=== PATIENT | male | born 1955 | race Caucasian/White ===

== ENCOUNTER 2017-01-04 10:02 | Day surgery (SDC) | payer OTHER, MEDICARE ==
[2017-01-04] VITALS (11 sets, daily range): BP systolic 97–140; BP diastolic 49–90; PULSE 60–98; RESP 12–18; O2SAT 92–99
[~2017-01-04] VITALS: Ht 180.3 cm; Wt 129.5 kg
[~2017-01-04 10:02] MED LIST: CITA40TA13 PO; CeFAZolin Inj 3 GM in IV Premix 1 EACH IV SCH; DOCO1CAP3 PO; FLEC100T2 PO; LEVO75TA4 PO; LIP40 PO; LOPE2CAP PO; Lactated Ringer's 1,000 ML IV SCH; MAGN400T4 PO; METF500T4 PO; METO25TA6 PO; PRAM0.5T3 PO; PROC-4 PO; TAMS0.4C98 PO; WARF5TAB7 PO
[2017-01-04] MEDS ORDERED: MetoCLOpramide 5 mg/mL 2 mL Inj ONE (10:03)
[2017-01-04] MEDS ORDERED: Propofol 10,000 mCg/mL 20 mL Inj ONE (10:03)
[2017-01-04] MEDS ORDERED: Ondansetron 2 mg/mL 2 mL Inj ONE (10:03)
[2017-01-04] MEDS ORDERED: fentaNYL-PF 50 mCg/mL 2 mL Inj ONE (10:03)
[2017-01-04 11:13] LABS: INR 2.17 ratio
--- NOTE | 2017-01-04 12:44 | PCM.HPANE ---
Patient Data Surgeon Admitting Provider: Attending Provider:Eric Arreola DO Primary Care Physician:Loraine Estrella PA-C Other Provider:Chemo Brown Anesthesia Reason for Visit Left Olecranon Bursitis, Left Middle Trigger Finge Ht/WT & BMI Height (Feet): 5 Height (Inches): 11 Weight (Kilograms): 133.99 Body Mass Index 41.00 Allergies Coded Allergies: Sulfa (Sulfonamide Antibiotics) (Verified Allergy, Severe, rash, itch, ) niacin (Verified Allergy, Unknown, 06/26/16) Past Anesthesia History Anesthesia History: Positive for:: Anesthesia Reactions (Was told he was not a good patient for a spinal - did not work), Denies:: Abnormal Airway, Difficult Intubation, Fam Anesthesia Reaction, Fam Malignant Hypertherm, Malignant Hyperthermia Diabetes History Hx Diabetes?: Yes (Hgb A1C 7.2 on 07/2016) MRSA MRSA: Yes (Vein stripping 3 years ago - [place] in hospital for MRSA) Medications Blood Thinner: Coumadin Reported Medications Warfarin Sodium 5 Mg Tablet7.5 Mg PO 6xweek 30 Days Ref 0 01/02/17 Warfarin Sodium 5 Mg Tablet5 Mg PO MON 30 Days Ref 0 01/02/17 Tamsulosin (Flomax)0.4 Mg Capsule0.4 Mg PO DAILY Ref 0 01/02/17 Pramipexole Dihydrochloride (Mirapex)0.5 Mg Tablet0.5 Mg PO HS 01/02/17 Metoprolol Tartrate 25 Mg Zfiskd05 Mg PO BID 30 Days Ref 0 01/02/17 Metformin 500 Mg Kzugjl214 Mg PO BID Ref 0 01/02/17 Magnesium Oxide 400 Mg Ccnzmv408 Mg PO BID 01/02/17 Loperamide 2 Mg Capsule2 Mg PO Q4H PRN For Diarrhea or Loose Stool 01/02/17 Levothyroxine 75 Mcg Rfnsro66 Mcg PO DAILY Ref 0 01/02/17 Flecainide Acetate 100 Mg Xtajwz607 Mg PO DAILY 01/02/17 Docosahexanoic Acid/Epa (Fish Oil Concentrate Softgel)1 Each Capsule1 Each PO DAILY 01/02/17 Prochlorperazine Maleate (Compazine)10 Mg Vtqiqb15 Mg PO TID 01/02/17 Citalopram 40 Mg Xqkyez45 Mg PO DAILY 30 Days Ref 0 01/02/17 Atorvastatin (Lipitor)40 Mg Wlcnge64 Mg PO DAILY Ref 0 01/02/17 Discontinued Reported Medications Tamsulosin (Flomax)0.4 Mg Capsule0.4 Mg PO HS 06/14/16 Metoprolol Tartrate 25 Mg Iymtky86 Mg PO BID 06/14/16 Pramipexole Dihydrochloride 0.5 Mg Tablet0.5 Mg PO HS 08/17/15 Warfarin Sodium 5 Mg Tablet7.5 Mg PO ,,Sun,,Sun08/17/15 Warfarin Sodium 5 Mg Tablet5 Mg PO Sun, Sun08/17/15 Magnesium Oxide 400 Mg Jbtkuy726 Mg PO BID 01/12/15 Sanders-3 Fatty Acids/Fish Oil (Sanders 3 Fish Oil Softgel)1 Each Capsule.dr1 Each PO DAILY 01/12/15 Flecainide Acetate 100 Mg Gqlnrl590 Mg PO BID 01/12/15 Atorvastatin (Lipitor)40 Mg Ucjfrd04 Mg PO DAILY 01/12/15 Discontinued Scripts Hydrocodone-Acetaminophen 5-325 mg 1 Each Tablet1 Tablet PO Q4H PRN For Pain # 20 TABLET Ref 0 Prov:Carlos Martin PA-C 06/27/16 Doxycycline Hyclate 100 Mg Itccxuo262 Mg PO DAILY #7 CAPSULE Ref 0 Prov:Carlos Martin PA-C 06/27/16 Levothyroxine 75 Mcg Pvsxhz81 Mcg PO DAILY #30 TABLET Ref 0 Prov:Karen Calloway MD 06/16/16 Metformin 500 Mg Ukpetc047 Mg PO BID #60 TABLET Ref 0 Prov:Karen Calloway MD 06/16/16 History History of ENT Problems?: Yes HEENT History: Positive for:: Sinus Problem (sinus surgery - remote - at least 6 years ago) Denies:: Abnormal Airway Cataracts Difficult Intubation Dysphagia Hearing Problem Denture Type: Partial- Upper Hx of Heart Problems?: Yes Cardiovascular History: Positive for:: Atrial Fibrillation Cardiac Surgery (PFO closure - [facility] - pacemaker 2008) Chest Pain (Chest tightness and discomfort admit 06/14- for this) Heart Murmur Hypertension Irregular Heartbeat (HX of PAT) Pacemaker Valvular Heart Disease (atrial septal defect corrected ) Denies:: AICD Congestive Heart Failure Edema Thrombophlebitis Hx of Respiratory Problem?: Yes Respiratory History: Positive for:: Dyspnea Pneumonia (As a ) Use of C-PAP Machine Denies:: Asthma COPD Chest Surgery (PFO repair done through femoral access/pacemaker) Cough Emphysema Hemoptysis Oxygen Administration Tuberculosis Hx Neurologic Problems?: Yes Neurological History: Positive for:: CVA (PFO DX after CVA - no large deficits ) Dizziness (When he 1st gets up from lying down) Denies:: Alzheimer's Disease Dementia Headaches Parkinson's Disease Seizures Hx of GI Problems?: Yes Gastrointestinal History: Denies:: Cirrhosis Diverticulitis Gastroesphageal Reflux Gastrointestinal Bleeding Heartburn ( ) Hepatitis Hiatal Hernia Rectal Bleeding Other GI Pertinent History: hx gastric bypass Hx of Problems?: No Genitourinary History: Denies:: HX of Hemodialysis Kidney Stones Urinary Tract Infection HX of Peritoneal Dialysis: No Male Hx: Positive for:: Prostate Problems (BPH) Denies:: Scrotal Mass Testicular Surgery Skin History: Denies:: History Skin Disorders? Pressure Ulcers Hx Musculoskeletal Problems?: Yes Musculoskeletal History: Positive for:: Musculoskeletal Trauma (left arm current admission problem) Denies:: Back Injury Joint Replacement Hx of Psycho/Social Problems?: Yes Psycho Social History: Positive for:: Hx Depression Denies:: Anxiety Bipolar Disorder Suicide Attempt Hx Surgeries?: Yes (gastric bypass, pacer, knee scopes, sinus surgery) Hx Any Other Health Problems?: Yes Other History: Positive for:: Hospitalization Thyroid Disease Denies:: Cancer Endocrine Disease History Blood Transfusions: Denies:: Blood Transfuse Reaction Blood Transfusions Hx Diabetes: Yes (Hgb A1C 7.2 on 07/2016) Hx Alcohol Use: YesHx Substance Use: No Smoking Status: Never Smoker Have You Smoked inLast 12 mo: No Stop/Bang S-Snoring: Do You Snore Loudly: No T-Tired: feel tired, fatigued: No O-Obsered: Observed not breath: No P-Blood Pressure: treated: Yes B- Body Mass Index > 35 kg/m2: Yes A- Age over 50: Yes N- Neck Large Circumference: Yes G- Gender Male: Yes LEIDA Total Score: 5 Risk Assessment Category Category 1A: Patient has history of documented sleep apnea, and HAS NOT received any narcotic, sedative or anesthesia administration during this stay. Category 1B: Patient has history of documented sleep apnea, and HAS received any narcotic , sedative or anesthesia administration during this stay Category 2: Patient has SUSPECTED Obstructive Sleep Apnea, and HAS received any narcotic , sedative or anesthesia administration during this stay. Category 3: Patient has SUSPECTED Obstructive Sleep Apnea and HAS NOT received narcotic, sedative or anesthesia administration during this stay. Category 4: Outpatient in Procedural Areas with known sleep apnea or who screen positive for High Risk via the STOP/BANG questionnaire. Exam Exam General Appearance: Alert, Oriented X3, Cooperative, No Acute Distress HEENT/AIRWAY: MP 2, Neck Movement (FROM), Mouth Opening (3 FBMO) Lungs: Clear to Auscultation, Normal Air Movement Heart: Exam Unremarkable, Regular Rate/Rhythm, No Murmurs/Rubs/Gallops Plan Impression Patient chart reviewed, patient interviewed and anesthestic plan with risks, benefits, and alternatives discussed, and informed consent obtained. NPO Status: > 8hrs ASA Physical Status: ASA3 Severe Disease (Pacemaker) Anesthetic Plan: GA Bene/Risks/Altern/Consents: Yes HP Complete Prior to Induction: Yes Suleman Lewis MD Jan 04, 2017 10:24
[2017-01-04] MEDS ORDERED: Lactated Ringer's 1,000 ML IV SCH (13:04)
[2017-01-04] MEDS ORDERED: Lactated Ringer's 500 ML IV PRN (13:04)
[2017-01-04] MEDS ORDERED: Phenylephrine 10,000 mCg/mL Inj IVPUSH PRN (13:05)
[2017-01-04] MEDS ORDERED: MetoCLOpramide 5 mg/mL 2 mL Inj IVPUSH PRN (13:05)
[2017-01-04] MEDS ORDERED: Ondansetron 2 mg/mL 2 mL Inj IVPUSH PRN (13:05)
[2017-01-04] MEDS ORDERED: Atropine 0.4 mg/mL Inj IVPUSH PRN (13:05)
[2017-01-04] MEDS ORDERED: HYDROmorphone 1 mg/mL Inj IVPUSH PRN (13:05)
[2017-01-04] MEDS ORDERED: EPHEDrine Sulfate 50 mg/mL Inj IVPUSH PRN (13:05)
[2017-01-04] MEDS ORDERED: hydrALAZINE 20 mg/mL Inj IVPUSH PRN (13:05)
[2017-01-04] MEDS ORDERED: fentaNYL-PF 50 mCg/mL 2 mL Inj IVPUSH PRN (13:05)
[2017-01-04] MEDS ORDERED: Labetalol 5 mg/mL 4 mL Inj IV PRN (13:05)
[2017-01-04] MEDS ORDERED: Lidocaine 1%-Epi 1:100,000 20 mL Inj INFILTRATE ONE (13:10)
[2017-01-04] MEDS ORDERED: HYDROcodone-APAP 7.5-325 mg Tablet PO PRN (13:35)
--- NOTE | 2017-01-04 15:37 | PCM.ANEP2 ---
Post Anesthesia Evaluation ASA/CMS Post Anesthesia VS in Patient's Normal Range?: Yes Resp Stable; Airway Patent?: Yes CV Function & Hydration Stable: Yes Mental Status Recovered?: Yes Pain control Satisfactory?: Yes N/V Control Satisfactory?: Yes Suleman Lewis MD Jan 04, 2017 15:37
--- NOTE | 2017-01-04 15:37 | PCM.ANEP1 ---
Post Anesthesia Phase 1 PACU Phase 1 Assessment Vital Signs Vital Signs Date Time Temp Pulse Resp B/P Pulse Ox O2 Delivery O2 Flow Rate FiO2 01/04/17 14:35 36.7 60 18 134/85 97 Room Air 01/04/17 14:15 60 12 134/85 97 Room Air 01/04/17 14:10 36.7 60 15 131/75 96 Room Air 01/04/17 14:05 60 15 129/79 99 Room Air 01/04/17 14:00 60 14 121/69 99 Simple Mask 8 01/04/17 13:55 60 15 124/74 99 Simple Mask 8 01/04/17 13:50 60 16 127/71 99 Simple Mask 8 01/04/17 13:45 36.8 60 16 126/76 99 Simple Mask 8 01/04/17 10:25 36.8 98 16 140/90 98 Room Air Anesthetic Administered: GA Level of Alertness: Awake, talking BENITES's with Equal Strength: Yes Pain: No Nausea or Vomiting: No Oxygen Delivery: Room Air Lungs: Clear to Auscultation, Normal Air Movement Dermatome Level: Full Sensation Suleman Lewis MD Jan 04, 2017 15:37
--- NOTE | 2017-01-05 13:40 | OP ---
[address] [address] OPERATIVE REPORT PATIENT: ABE RIGGS : 1955 MR#: [id number] ADMIT: 01/04/2017 JOB ID: [id number] DATE OF SURGERY: 01/04/2017 PREOPERATIVE DIAGNOSIS(ES): 1. Left olecranon bursitis. 2. Left middle finger trigger finger. POSTOPERATIVE DIAGNOSIS(ES): 1. Left olecranon bursitis. 2. Left middle finger trigger finger. PROCEDURE: 1. Left elbow olecranon bursectomy. 2. Left middle finger A1 chelle release. SURGEON: Eric Arreola DO. TELETYPESETTER MONITOR: Zuleima Torres PA-C. ANESTHESIA: General. HISTORY: The patient is a pleasant 61-year-old male. He has a longstanding history of left middle finger catching and locking. He had failed conservative treatment and opted to proceed with operative intervention for A1 chelle release. He also demonstrated signs of olecranon bursectomy that had failed previous treatment and continued to be painful with activity. I discussed with the patient the risks, benefits, alternatives, indications to proceed with a left middle finger A1 chelle release as well as a left olecranon bursectomy. He understood the risks include, but are not limited to neurovascular injury, tendon injury, infection, recurrence of his symptoms, stiffness, persistent pain which may require further intervention. Patient had all questions answered. Consent was signed and placed on the chart. PROCEDURE IN DETAIL: The patient was brought to the operative suite and placed supine on the operating table. Surgical time-out was performed. Everyone in the room was in agreement. After appropriate anesthesia was obtained, a left upper arm tourniquet was applied and the left upper extremity was prepped and draped in sterile fashion. Left upper extremity was then exsanguinated and tourniquet inflated to 250 mmHg. The patient's left middle finger was approached first. A short oblique incision was made overlying a palmar crease directly overlying the A1 chelle. Dissection was carried down to the A1 chelle. Care was taken to protect the digital neurovascular bundles. The A1 chelle was identified and incised longitudinally in line with the underlying flexor tendons. After complete release of the A1 chelle, the flexor tendons were easily delivered from the operative wound. Copious irrigation was performed followed by closure of the skin with 5-0 nylon in a simple interrupted fashion. Attention was then turned towards the left olecranon bursectomy. A longitudinal incision was made overlying the bursa. Dissection was carried down subcutaneously to expose the bursa. The bursa was freed up from the surrounding soft tissue and released in its entirety. There was were some loose, thickened fragments within the bursa itself. The fragments were sent off to Pathology. After excision of the entire bursa copious irrigation was performed. Subcutaneous tissues closed with Vicryl and a 3-0 nylon for the skin. The patient was then placed into a bulky compressive dressing. ESTIMATED BLOOD LOSS: Less than 5 cc. COMPLICATIONS: None. DISPOSITION: The patient tolerated the procedure well. Anesthesia was reversed and the patient was transferred to PACU for recovery. SPECIMENS: Left olecranon bursa sent to Pathology. POSTOPERATIVE PLAN: The patient will follow up the office in two weeks. I will remove the patient's sutures at that time and have him start working on range of motion and scar mobilization.
--- NOTE | 2017-01-08 14:13 | PATH ---
SURGICAL PATHOLOGY Attending Physician:Eric Arreola MD CASE STATUS: Signed Out PATIENT NAME: ABE RIGGS PID: [id number] : 1955 DATE COLLECTED:01/04/2017 00:00 SPECIMEN: Bursa CLINICAL HISTORY: LEFT OLECRANON BURSITIS, LEFT MIDDLE TRIGGER FINGER 1). LEFT ARM BURSA FINAL DIAGNOSIS: 1.TISSUE FROM LEFT ARM BURSA: CHRONIC INFLAMMATION AND FIBROUS SCARRING CONSISTENT WITH CHRONIC BURSITIS. ICD10 CODE M70.832 GROSS DESCRIPTION: The specimen is received in one formalin filled container labeled with the patient's name, sublabeled "left arm bursa" and consists of 2 light pink [place] portions of tissue which aggregate to 1.5 x 1.1 x 0.6 CM. The specimen is inked. 4 technical sales representative sections are submitted in one cassette. 01/05/2017 DAC MICRO DESCRIPTION: See diagnosis. ICD-9 CODES: CPT CODES: 1: 86070 Electronically Signed Out Paul Cruz MD [facility] [address], [place] [address] Technical component performed at [facility], [address] [place] [address] Ave[address], [place], [address]
== END 2017-01-04 23:59 | disposition home or self-care (01) ==
LOC: SAS 10:02
PROVIDERS: ATTEND Orthopaedic Surgery
DX: M70.22 Olecranon bursitis, left elbow (principal); M65.332 Trigger finger, left middle finger; I25.10 Atherosclerotic heart disease of native coronary artery without angina pectoris; I12.9 Hypertensive chronic kidney disease with stage 1 through stage 4 chronic kidney disease, or unspecified chronic kidney disease; E11.22 Type 2 diabetes mellitus with diabetic chronic kidney disease; I48.0 Paroxysmal atrial fibrillation; N18.9 Chronic kidney disease, unspecified; G47.33 Obstructive sleep apnea (adult) (pediatric); E03.9 Hypothyroidism, unspecified; F32.9 Major depressive disorder, single episode, unspecified; E78.5 Hyperlipidemia, unspecified; Z79.01 Long term (current) use of anticoagulants; Z95.0 Presence of cardiac pacemaker; Z86.73 Personal history of transient ischemic attack (TIA), and cerebral infarction without residual deficits; Z98.84 Bariatric surgery status; Z79.84 Long term (current) use of oral hypoglycemic drugs; Z86.14 Personal history of Methicillin resistant Staphylococcus aureus infection
CPT/HCPCS: 24105; 26055; 36415; 85610; J0690; J1170; J2405; J2765; J3010; J7120

== ENCOUNTER 2017-03-07 07:47 | Day surgery (SDC) | payer OTHER, MEDICARE ==
--- NOTE | 2017-03-06 11:40 | PCM.ANEPRE ---
Anesthesia Pre-Op Review Reason for Review: PACEMAKER/CARDIAC HX-COMORBIDITIES Anesthesia Recommendations: Proceed with Procedure Additional Comments 62 yo w/ morbid obesity, LEIDA on CPAP, EF 35-40%, pulmonary htn PA 39 mm Hg, atrial fibrillation, pacemaker. Last coronary evaluation 2015 okay. 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 Had orthopedic procedure in november uneventful. OK to proceed pending DOS evaluation by anesthesiologist Edilson Zamudio MD March 06, 2017 11:40
[2017-03-07] VITALS (9 sets, daily range): BP systolic 111–149; BP diastolic 57–93; PULSE 60–68; RESP 13–22; O2SAT 95–99
[~2017-03-07] VITALS: Ht 180.3 cm; Wt 131.5 kg
[2017-03-07] MEDS ORDERED: Propofol 10,000 mCg/mL 20 mL Inj ONE (07:48)
[2017-03-07] MEDS ORDERED: fentaNYL-PF 50 mCg/mL 2 mL Inj ONE (07:48)
[2017-03-07] MEDS ORDERED: Ondansetron 2 mg/mL 2 mL Inj ONE (07:48)
[2017-03-07] MEDS ORDERED: MetoCLOpramide 5 mg/mL 2 mL Inj ONE (07:48)
[2017-03-07 08:38] LABS: INR 1.47 ratio
[2017-03-07] MEDS ORDERED: Lactated Ringer's 1,000 ML IV ONE (08:41)
[2017-03-07] MEDS ORDERED: Lactated Ringer's 500 ML IV PRN (09:53)
[2017-03-07] MEDS ORDERED: Lactated Ringer's 1,000 ML IV SCH (09:53)
--- NOTE | 2017-03-07 09:53 | PCM.HPANE ---
Patient Data Date of Service: March 07, 2017 (0952) Surgeon Admitting Provider: Attending Provider:Eren Valdez MD Primary Care Physician:Loraine Estrella PA-C Other Provider:Chemo Brown Anesthesia Reason for Visit Right Meniscal Tear Ht/WT & BMI Height (Feet): 5 Height (Inches): 11 Weight (Kilograms): 131.451 Body Mass Index 40.00 Allergies Coded Allergies: Sulfa (Sulfonamide Antibiotics) (Verified Allergy, Severe, rash, itch, 03/06) niacin (Verified Allergy, Unknown, unknown, 03/06/17) Past Anesthesia History Anesthesia History: Positive for:: Anesthesia Reactions (Was told he was not a good patient for a spinal - did not work), Denies:: Abnormal Airway, Difficult Intubation, Fam Anesthesia Reaction, Fam Malignant Hypertherm, Malignant Hyperthermia Diabetes History Hx Diabetes?: Yes (TYPE II) Type of Diabetes: Type II Glycemic Control: Oral Medication Current Bedside Blood Glucose: 116 MRSA MRSA: Yes (Vein stripping 3 years ago - [place] in hospital for MRSA) Medications Blood Thinner: Coumadin Home Meds Incl Beta Elizabeth: Yes (METROPOLO) Date Beta Elizabeth Taken: March 07, 2017 Time Beta Elizabeth Taken: 0630 Reported Medications Warfarin Sodium 5 Mg Tablet7.5 Mg PO 6xweek 30 Days Ref 0 01/02/17 Warfarin Sodium 5 Mg Tablet5 Mg PO MON 30 Days Ref 0 01/02/17 Tamsulosin (Flomax)0.4 Mg Capsule0.4 Mg PO DAILY Ref 0 01/02/17 Pramipexole Dihydrochloride (Mirapex)0.5 Mg Tablet0.5 Mg PO HS 01/02/17 Metoprolol Tartrate 25 Mg Xgotae26 Mg PO BID 30 Days Ref 0 01/02/17 Metformin 500 Mg Irskau212 Mg PO BID Ref 0 01/02/17 Magnesium Oxide 400 Mg Gemzhz629 Mg PO BID 01/02/17 Loperamide 2 Mg Capsule2 Mg PO Q4H PRN For Diarrhea or Loose Stool 01/02/17 Levothyroxine 75 Mcg Gtjyfu75 Mcg PO DAILY Ref 0 01/02/17 Flecainide Acetate 100 Mg Jllhyw898 Mg PO BID 01/02/17 Docosahexanoic Acid/Epa (Fish Oil Concentrate Softgel)1 Each Capsule1 Each PO DAILY 01/02/17 Prochlorperazine Maleate (Compazine)10 Mg Ttirvu59 Mg PO TID 01/02/17 Citalopram 40 Mg Qvfbsw53 Mg PO DAILY 30 Days Ref 0 01/02/17 Atorvastatin (Lipitor)40 Mg Yqdfdj11 Mg PO DAILY Ref 0 01/02/17 History History of ENT Problems?: Yes HEENT History: Positive for:: Sinus Problem (S/P SINUS SURGERY X3) Denies:: Abnormal Airway Cataracts Difficult Intubation Dysphagia Hearing Problem Denture Type: Partial- Upper Teeth Condition: Missing Teeth Hx of Heart Problems?: Yes Cardiovascular History: Positive for:: Atrial Fibrillation Cardiac Surgery (PFO closure - [facility] - pacemaker 2007,REVISION TO [facility] 2015) Chest Pain (LESS AFTER PACEMAKER REVISION 05/2016) Coronary Artery Disease (DILATED CARDIOMYOPATHY,PATENT FOREMEN OVALE S/P DEVICE CLOSURE [facility]) Heart Murmur (ECHO 05/2016 EF 35-40%) Hypertension (HYPERLIPIDEMIA) Irregular Heartbeat (HX of PAT, PALPITATIONS) Pacemaker (ORIGINAL PLCDE 2007,[facility] BIVENTRICULAR 05/2016) Peripheral Vascular (S/P RFA LT SAPHENOUS) Valvular Heart Disease (S/P DEVICE CLOSURE A-S DEFECT,MILD AR,MILD-MOD TR) Denies:: AICD Congestive Heart Failure Edema Thrombophlebitis Hx of Respiratory Problem?: Yes Respiratory History: Positive for:: Dyspnea (MILD BOYD) Pneumonia (As a ) Use of C-PAP Machine (LEIDA+ W/CPAP SLEEP STUDY 12/2009) Denies:: Asthma COPD (HX OF ADMISSION FOR SIRS 07/2015) Chest Surgery (PFO repair done through femoral access/pacemaker) Cough Emphysema Hemoptysis Oxygen Administration Tuberculosis Hx Neurologic Problems?: Yes Neurological History: Positive for:: CVA (PFO DX after CVA - no large deficits ) Dizziness (INTERMITTANT VERTTIGO W/ POSITION CHANGES) Denies:: Alzheimer's Disease Dementia Headaches Parkinson's Disease Seizures Hx of GI Problems?: Yes Other GI Pertinent History: S/P APPY,GASTRIC BYPASS Hx of Problems?: Yes Genitourinary History: Denies:: HX of Hemodialysis (HX CHRONIC RENAL INSUFFICIENCY) Kidney Stones Urinary Tract Infection HX of Peritoneal Dialysis: No Other Pertinent History: C/OF ED Male Hx: Positive for:: Prostate Problems (BPH, HX PROSTATITIS) Denies:: Scrotal Mass Testicular Surgery Skin History: Positive for:: History Skin Disorders? (S/P I&D LT GROIN ABCESS) Denies:: Pressure Ulcers Hx Musculoskeletal Problems?: Yes Musculoskeletal History: Positive for:: Degenerative Joint (RT KNEE MENISCAL TEAR=CURRENT PROBLEM (WEARS KNEE BRACE)) Musculoskeletal Trauma (S/P MULT RT KNEE SCOPES,EXC BURSA LT OLECRANON,RT SHOULDER RPR) Osteoarthritis Denies:: Back Injury Joint Replacement Hx of Psycho/Social Problems?: Yes Psycho Social History: Positive for:: Hx Depression Denies:: Anxiety Bipolar Disorder Suicide Attempt Hx Surgeries?: Yes (PACEMAKER X2,SINUS X3,MULT KNEE SCOPES,BUNIONS X2,RT SHOULDER,OLECRANON BUR) Hx Any Other Health Problems?: Yes Other History: Positive for:: Hospitalization Thyroid Disease Denies:: Cancer Endocrine Disease History Blood Transfusions: Denies:: Blood Transfuse Reaction Blood Transfusions Hx Diabetes: Yes (TYPE II)Bedside Blood Glucose: 116 Hx Alcohol Use: YesHx Substance Use: No Smoking Status: Never Smoker Have You Smoked inLast 12 mo: No Stop/Bang S-Snoring: Do You Snore Loudly: Yes T-Tired: feel tired, fatigued: Yes O-Obsered: Observed not breath: Yes P-Blood Pressure: treated: Yes B- Body Mass Index > 35 kg/m2: Yes A- Age over 50: Yes N- Neck Large Circumference: Yes G- Gender Male: Yes LEIDA Total Score: 8 LEIDA Risk Assessment: High Risk, =/>3 Yes Risk Assessment Category Category 1A: Patient has history of documented sleep apnea, and HAS NOT received any narcotic, sedative or anesthesia administration during this stay. Category 1B: Patient has history of documented sleep apnea, and HAS received any narcotic , sedative or anesthesia administration during this stay Category 2: Patient has SUSPECTED Obstructive Sleep Apnea, and HAS received any narcotic , sedative or anesthesia administration during this stay. Category 3: Patient has SUSPECTED Obstructive Sleep Apnea and HAS NOT received narcotic, sedative or anesthesia administration during this stay. Category 4: Outpatient in Procedural Areas with known sleep apnea or who screen positive for High Risk via the STOP/BANG questionnaire. Exam Exam Vital Signs Vital Signs Date Time Temp Pulse Resp B/P Pulse Ox O2 Delivery O2 Flow Rate FiO2 03/07/17 08:42 35.9 60 22 131/93 97 Room Air General Appearance: Alert, Oriented X3 HEENT/AIRWAY: MP 1 Lungs: Clear to Auscultation Heart: Exam Unremarkable Meds/Labs/Diagnostics Admission Meds Current Medications Lactated Ringer's (Lr) 1,000 ml @ ud STK-MED ONCE IV Last administered on 03/07t 08:41; Start 03/07/17 at 08:41; Stop 03/07/17 at 08:42; Status DC Bedside Blood Glucose: 116 Labs Test 03/07/17 08:19 Prothrombin Time 15.9sec (8.1-12.5) Prothromb Time International Ratio 1.47ratio Plan Impression Patient chart reviewed, patient interviewed and anesthestic plan with risks, benefits, and alternatives discussed, and informed consent obtained. NPO per Anesth. Guidelines: Yes ASA Physical Status: ASA3 Severe Disease Anesthetic Plan: GA Bene/Risks/Altern/Consents: Yes HP Complete Prior to Induction: Yes Christiano Hunt MD March 07, 2017 09:52
[2017-03-07] MEDS ORDERED: MetoCLOpramide 5 mg/mL 2 mL Inj IVPUSH PRN (09:55)
[2017-03-07] MEDS ORDERED: HYDROmorphone 1 mg/mL Inj IVPUSH PRN (09:55)
[2017-03-07] MEDS ORDERED: Phenylephrine 10,000 mCg/mL Inj IVPUSH PRN (09:55)
[2017-03-07] MEDS ORDERED: Ondansetron 2 mg/mL 2 mL Inj IVPUSH PRN (09:55)
[2017-03-07] MEDS ORDERED: Dexamethasone 4 mg/mL Inj IVPUSH PRN (09:55)
[2017-03-07] MEDS ORDERED: EPHEDrine Sulfate 50 mg/mL Inj IVPUSH PRN (09:55)
[2017-03-07] MEDS ORDERED: fentaNYL-PF 50 mCg/mL 2 mL Inj IVPUSH PRN (09:55)
[2017-03-07] MEDS ORDERED: Ketorolac 15 mg/mL Inj IVPUSH ONE (10:05)
[2017-03-07] MEDS ORDERED: HYDROcodone-APAP 5-325 mg Tablet PO PRN (10:05)
--- NOTE | 2017-03-07 10:05 | PCM.ORTHOP ---
Orthopedic Operative Report Date of Service: March 07, 2017 (0952) Pre Operative Diagnosis Right knee medial and lateral meniscus tear Post Operative Diagnosis Same Procedure Right knee arthroscopy, partial medial meniscectomy, partial lateral meniscectomy, chondroplasty, partial synovectomy Surgeon Surgeon: Eren Valdez MD Assistants: None Indication for Procedure Right knee meniscus tear Findings Per dictation Details of Procedure - right knee arthroscopy, -right knee, partial medial meniscectomy -right knee, partial lateral meniscectomy -right knee, chondroplasty -right knee, partial synovectomy INDICATIONS: Jalil Lara is a 62-year-old male who has had a history of right knee pain with a history of knee arthroscopy in the past. The patient has failed conservative management. 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 MRI was obtained which reveals medial and lateral meniscus tear. The patient has had persistent symptoms and is now brought to the operating room for arthroscopy. The risks, benefits, and alternatives of surgery were discussed with the patient. The risks included but were not limited to infection, bleeding, damage to vessels and nerves, loss of motion, continued pain, re-tear of the meniscus, deep venous thrombosis, and complications due to anesthesia including nerve injury, myocardial infarction, stroke, , etc. The patient stated understanding of the nature of the surgical procedure and gave written and verbal consent to proceed. PROCEDURE: The patient was brought to the operating room and placed supine on the operating room table. After the administration of general anesthesia the patient was placed in the supine position. Examination of the knee revealed no evident instability with a trace effusion. All prominences were padded with appropriately and neurovascular structures protected. The right knee was confirmed to be the appropriate site following surgical time out. The right lower extremity was examined under anesthesia. Range of motion was 0-135 degrees. There was no varus or valgus or anterior or posterior instability. The right lower extremity was then prepped and draped in the usual fashion. Sterile prep and drape was then undertaken of the knee. The knee joint was injected with 20 ccs of 1% Lidocaine, along with 3 ccs of 1 % lidocaine in the medial and lateral portal sites respectively. A standard anterolateral parapatellar stab wound was created. The knee joint was entered with a blunt- tipped obturator, followed by the 30-degree video arthroscope. An anteromedial portal was established under arthroscopic control. A routine arthroscopic survey was performed. 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 The medial joint space was then entered. The articular surfaces showed grade 3/ 4 chondromalacia. A degenerative posterior horn and body medial meniscal tear was noted with a small flap. The shaver and the cutting instruments were inserted, and a debridement of the meniscus back to healthy tissue was then undertaken. The ACL and PCL were noted to be intact. The lateral joint space was then entered. The articular surfaces were intact with grade 3/4 chondromalacia. There was a degenerative tear to the inner and posterior aspect of the lateral meniscus. A combination of the shaver and cutting instruments were then inserted and a debridement of this tissue down to stable tissue was undertaken. Moderate synovitis was noted anteriorly in the medial and lateral compartment and debrided with a shaver. The knee was irrigated with an additional 2 liters of lactated Ringer's solution. Excess fluid was drained. The portals were closed with 3-0 nylon as well as xeroform. The knee was injected with 20 mL of 0.5% ropivacaine. A dry sterile dressing was applied, followed by an JOLANTA hose, soft roll, and BOGDAN bandage. The patient was awakened in the operating room and transported to the recovery room in satisfactory condition. The patient appeared to tolerate the procedure well. At the completion of surgery the patient had soft compartments , palpable pulses, and brisk capillary refill. There were no complications noted. Please keep dressing clean dry and intact. Do not remove dressing until follow- up in clinic. If the dressing become soaked, you may remove the outer gauze and placed Band-Aids on the wounds. You may weight-bear as tolerated and maintain motion of your knee by bending it daily. You will follow up in clinic in 10-14 days for suture removal, and placement of new Steri-Strips. You will follow-up with me in clinic, and we will start physical therapy if needed. You will follow-up with me at 6 weeks postop and 12 weeks postop and will be released after that if improved. Please keep the affected extremity elevated when possible. Please take your regular coumadin starting today. You may use ice and/or heat as needed for comfort. (preferably ice during the first 48-72 hours) Please feel free to call with any further questions, comments, and/ or concerns. Grafts, Implants: None Complications There were no periprocedural complications identified. Condition Stable Anesthetic Administered: GA Catheters: None Output, Estimated Blood Loss: 5 Blood Admin during surgery: No Surgical Cast or Splint: Other Surgical Specimen Removed: No Specimen sent to Pathology: No copies to: Eren Valdez MD, Christopher L MD March 07, 2017 10:05
[2017-03-07] MEDS ORDERED: Ropivacaine-PF 0.5% 30 mL Inj INJ ONE (10:24)
--- NOTE | 2017-03-07 10:49 | PCM.ANEP1 ---
Post Anesthesia Phase 1 PACU Phase 1 Assessment Date of Service: March 07, 2017 (0952) Vital Signs 36.5, 99, 60, 10, 136/88 Vital Signs Date Time Temp Pulse Resp B/P Pulse Ox O2 Delivery O2 Flow Rate FiO2 03/07/17 08:42 35.9 60 22 131/93 97 Room Air Anesthetic Administered: GA Level of Alertness: Sleepy, easy to arouse BENITES's with Equal Strength: Yes Pain: No Nausea or Vomiting: No Cardiovascular Function and Hy: Yes Oxygen Delivery: Simple Mask Lungs: Clear to Auscultation Dermatome Level: Full Sensation Summary UNEVENTFUL GA Complications: Yes Follow up Care: No Christiano Hunt MD March 07, 2017 10:49
== END 2017-03-07 23:59 | disposition home or self-care (01) ==
LOC: SAS 07:47
PROVIDERS: ATTEND Orthopaedic Surgery
DX: M23.221 Derangement of posterior horn of medial meniscus due to old tear or injury, right knee (principal); M23.251 Derangement of posterior horn of lateral meniscus due to old tear or injury, right knee; M22.41 Chondromalacia patellae, right knee; M65.9 Synovitis and tenosynovitis, unspecified; M17.11 Unilateral primary osteoarthritis, right knee; I25.10 Atherosclerotic heart disease of native coronary artery without angina pectoris; G47.33 Obstructive sleep apnea (adult) (pediatric); F32.9 Major depressive disorder, single episode, unspecified; I10 Essential (primary) hypertension; G25.81 Restless legs syndrome; I48.0 Paroxysmal atrial fibrillation; E11.9 Type 2 diabetes mellitus without complications; E03.9 Hypothyroidism, unspecified; G47.00 Insomnia, unspecified; Q21.1 Atrial septal defect; R00.2 Palpitations; E78.5 Hyperlipidemia, unspecified; Z79.01 Long term (current) use of anticoagulants; Z79.84 Long term (current) use of oral hypoglycemic drugs; Z95.0 Presence of cardiac pacemaker
CPT/HCPCS: 29880; 36415; 85610; J0690; J1885; J2250; J2405; J2765; J2795; J3010; J7120